=== PATIENT | female | born 2000 | race Caucasian/White ===

== ENCOUNTER 2020-10-28 10:23 | Outpatient (CLI) | payer OTHER, MEDICAID | END 2020-10-28 10:24 | disposition home or self-care (01) | LOC: BICULT 10:23 | PROVIDERS: ATTEND Family Medicine | DX: Z34.02 Encounter for supervision of normal first pregnancy, second trimester (principal); Z3A.20 20 weeks gestation of pregnancy | CPT/HCPCS: 76805 ==